=== PATIENT | female | born 1950 | race Caucasian/White ===

== ENCOUNTER 2018-01-03 13:41 | Emergency (ER) | payer MEDICARE ==
[~2018-01-03] VITALS: Ht 172.7 cm; Wt 54.4 kg
[~2018-01-03 13:41] MED LIST: ACET500 PO; ANAS1 PO; DIPH50 PO; ESTR.625 PO; Flonase 0.05% N16 GM; HYDACE5 PO; LANS30EC PO; LORA.5 PO; LORA1 PO; MEDICAL MARIJUANA; Maxalt10 MG PO; ONDA4ODT MM; OXYACE5T PO; OXYC5 PO; Oxycodone HCl5 M1 PO; SERT100 PO; Triamcinolone A15 G3 TOP; [UNRECOGNIZED DRUG - OTHER]
[2018-01-03] MEDS ORDERED: ONDA4ODT MM (14:23)
[2018-01-03] MEDS ORDERED: CYCL10 PO (14:23)
[2018-01-03] MEDS ORDERED: KETO10 PO (14:23)
[2018-08-24] MEDS ORDERED: Flonase 0.05% N16 GM (13:13)
[2018-08-24] MEDS ORDERED: Narcan 0.40.4 MG/ML IM (13:14)
[2018-08-24] MEDS ORDERED: DULO60 PO (13:15)
== END 2018-01-03 14:59 | disposition home or self-care (01) ==
LOC: ER 13:41
DX: S30.0XXA Contusion of lower back and pelvis, initial encounter (principal); Z88.0 Allergy status to penicillin; Z88.5 Allergy status to narcotic agent; Z88.1 Allergy status to other antibiotic agents; W07.XXXA Fall from chair, initial encounter
CPT/HCPCS: 72100; 72220; 96372; 99283; J1885

== ENCOUNTER 2018-08-25 06:18 | Day surgery (SDC) | payer MEDICARE ==
[~2018-08-25] VITALS: Ht 172.7 cm; Wt 60.5 kg
[~2018-08-25 06:18] MED LIST changes: +CYCL10 PO; +DULO60 PO; +KETO10 PO; +Narcan 0.40.4 MG/ML IM
== END 2018-08-25 09:03 | disposition home or self-care (01) ==
LOC: ORSCSDS 06:18
PROVIDERS: Otolaryngology
PROC: 03BS0ZX Excision of Right Temporal Artery, Open Approach, Diagnostic (ICD-10-PCS; principal; 2018-08-25 07:30)
DX: M31.6 Other giant cell arteritis (principal); Z79.899 Other long term (current) drug therapy
CPT/HCPCS: 88305; 88313; J1100; J2250; J3010; J7120

== ENCOUNTER 2025-02-02 09:57 | Emergency (ER) | payer MEDICARE ==
[~2025-02-02] VITALS: Ht 172.7 cm; Wt 56.7 kg
[2025-02-02] MEDS ORDERED: Ondansetron HCl 2 MG / ML 2ML Vial IV ONE (10:45)
[2025-02-02 10:47] LABS: BASOPHILS ABSOLUTE AUTO 0.01 K/mm3 (0.00-0.23); BASOPHILS PERCENT AUTO 0 % (0-2); EOSINOPHILS ABSOLUTE AUTO 0.02 K/mm3 (0.00-0.68); EOSINOPHILS PERCENT AUTO 0 % (0-6); Hematocrit 41.1 % (33.0-51.0); Hemoglobin 15.1 g/dL (11.5-16.0); IMMATURE GRAN ABSOLUTE AUTO 0.02 K/mm3 (0.00-0.10); IMMATURE GRAN PERCENT AUTO 0 % (0-1); LYMPHOCYTES ABSOLUTE AUTO 0.64 K/mm3 (0.84-5.20); LYMPHOCYTES PERCENT AUTO 8 % (21-46); MONOCYTES ABSOLUTE AUTO 1.09 K/mm3 (0.16-1.47); MONOCYTES PERCENT AUTO 13 % (4-13); Mean Corpuscular HGB 33.4 pg (26.0-34.0); Mean Corpuscular HGB Conc 36.7 g/dL (31.5-36.5); Mean Corpuscular Volume 91 fL (80-100); Mean Platelet Volume 10.1 fL (9.1-12.4); NEUTROPHILS ABSOLUTE AUTO 6.73 K/mm3 (1.96-9.15); NEUTROPHILS PERCENT AUTO 79 % (41-73); Platelet Count 175 K/mm3 (150-400); RDW Coefficient Variation 11.7 % (11.7-14.2); RDW Standard Deviation 38.8 fL (35.1-46.3); Red Blood Cell Count 4.52 M/mm3 (3.80-5.20); White Blood Cell Count 8.51 K/mm3 (4.00-11.30)
[2025-02-02 11:09] LABS: Albumin, Blood 3.4 g/dL (3.4-5.0); Bilirubin, Total 1.3 mg/dL (0.1-1.0); Bun/Creatinine Ratio 21.2 (12.0-20.0); Calcium, Blood 8.8 mg/dL (8.5-10.1); Creatinine, Blood 0.8 mg/dL (0.40-1.00); Globulin, Blood 3.3 g/dL (2.2-4.0); Potassium, Blood 3.5 mmol/L (3.5-5.5); Total Protein, Blood 6.7 g/dL (6.4-8.2)
[2025-02-02] MEDS ORDERED: Ketorolac Tromethamine 15mg Vial IV ONE (13:25)
[2025-02-02 13:46] VITALS: BP 127/69
== END 2025-02-02 13:46 | disposition home or self-care (01) ==
LOC: ER 09:57
PROVIDERS: Emergency Medicine
DX: R55 Syncope and collapse (principal); J06.9 Acute upper respiratory infection, unspecified; Z85.3 Personal history of malignant neoplasm of breast; Z88.1 Allergy status to other antibiotic agents; Z88.0 Allergy status to penicillin; Z88.5 Allergy status to narcotic agent; Z79.899 Other long term (current) drug therapy
CPT/HCPCS: 71046; 80053; 84484; 85025; 93005; 93010; 96374; 96375; 99284-25; J1885; J2405